=== PATIENT | female | born 1970 | race Hispanic/Latino ===

== ENCOUNTER 2019-01-19 07:15 | Day surgery (SDC) | payer BC ==
[~2019-01-19] VITALS: Ht 154.9 cm; Wt 64.9 kg
--- NOTE | ~2019-01-19 | OR ---
[facility] [address] [place], [place] [address] Draft DATE OF OPERATION: 01/19/2019 SURGEON: Kathy Gupta MD PREOPERATIVE DIAGNOSES: Menometrorrhagia and endometrial polyp. POSTOPERATIVE DIAGNOSES: Menometrorrhagia and endometrial polyp. PROCEDURES PERFORMED: Hysteroscopy, resection of polyps. ANESTHESIA: MAC. ESTIMATED BLOOD LOSS: Minimal. DRAINS: None. INDICATIONS AND FINDINGS: The patient is a 48-year-old female, 3, para 3, status post prior BTL, who has been having recent abnormal bleeding. She has a history of endometrial polyps and hysterosonogram in the office revealed probable recurrent polyps. At the time of surgery, exam under anesthesia revealed a normal-size uterus. At the time of hysteroscopy, the uterus sounded to 8 cm. There was a small polyp in the lower fundus as well as a good size polyp in the posterior uterine fundus. DESCRIPTION OF PROCEDURE: The patient was prepped and draped in the dorsal lithotomy position. A weighted speculum was placed and the anterior lip of the cervix was visualized and grasped with a single-tooth tenaculum. The cavity sounded to 8 cm. The endocervical canal was then dilated to a #7 dilator. At this point, the MyoSure device was placed and the cavity evaluated. Polyps were identified. The MyoSure Lite was then used. The polyp at the posterior uterine fundus was removed as much as possible. It was little bit difficult given the location of the polyp. The low fundal polyp was also removed easily. Following this, the procedure was terminated. There was no evidence of ongoing bleeding after removal of PATIENT NAME: CHELO CURRY OPERATIVE REPORT DATE OF : 74 REPORT #: [id number] PHYSICIAN: KATHY GUPTA MD PCP: MILIND CANTRELL MD REPORT IS CONFIDENTIAL AND NOT TO BE RELEASED WITHOUT AUTHORIZATION [facility] [address] [facility] [place], [place] [address] Draft the tenaculum. The instruments removed and the patient was taken to the recovery room in good condition. Kathy Gupta MD PJW/MODL /[id number] Copies: ~ PATIENT NAME: CHELO CURRY OPERATIVE REPORT DATE OF : 74 REPORT #: [id number] PHYSICIAN: KATHY GUPTA MD PCP: MILIND CANTRELL MD REPORT IS CONFIDENTIAL AND NOT TO BE RELEASED WITHOUT AUTHORIZATION
[~2019-01-19 07:15] MED LIST: AMITRIPTYLINE H25 MG PO; MELOXICAM15 MG PO; MOTRIN IB200 MG PO; NORCO 5-325 TA1 EACH PO; NORCO 7.5-3251 EACH PO; OMEPRAZOLE20 MG PO; ULTRAM50 MG PO; VENTOLIN HFA18 GM INH
--- NOTE | 2019-01-19 10:19 | NUR ---
PT IS ALERT, ORIENTED AND SUPPORTED BY HER ALEXANDER. BOTH SEEM COMFORTABLE WITH FEW QUESTIONS. PT DID REQUEST PRAYER, WILL FOLLOW NEEDED
--- NOTE | 2019-01-19 11:00 | NUR ---
01/19/19 1100 Sheets,Sari 1052 PT ARRIVED TO PACU ON 6L VIA MASK, PT COUGHING OFF AND ON. RESP EVEN AND UNLABORED. PT DENIES PAIN AND NAUSEA. PT REORIENTED TO PACU. 1055 O2 MASK REMOVED, PT COUGHING AND ABLE TO COUGH UP SPUTUM IN TISSUE. PT ASLEEP OFF AND ON.
--- NOTE | 2019-01-21 17:22 | PATH ---
[facility] [address] [place], [place] [address] Signed SPECIMEN(S): A ENDOMETRIAL POLYP SPECIMEN SOURCE: A. ENDOMETRIAL POLYP CLINICAL HISTORY: Menometrorrhagia, endometrial polyp. FINAL PATHOLOGIC DIAGNOSIS: Uterus, endometrium, curettage: - Multiple fragments of smooth muscle (see comment). - Small fragments of secretory endometrium, negative for hyperplasia, atypia, and malignancy. COMMENT: The fragments of smooth muscle may represent a portion of leiomyoma. Correlation with at operation is suggested. LJA:cml:C2NR MICROSCOPIC EXAMINATION: Histologic sections of all submitted blocks are examined by light microscopy. These findings, together with the gross examination, support the pathologic diagnosis. GROSS DESCRIPTION: The specimen is received in a formalin-filled specimen container labeled "ML, A". An aggregate of pale graves-ford soft tissue fragments admixed with hemorrhagic material is 2.0 x 2.0 x 0.5 cm and entirely submitted in cassette (A1). GW (under the direct supervision of a pathologist) The Gross Description was prepared using a voice recognition system. The report was reviewed for accuracy; however, sound-alike word errors, addition and/or deletions may occur. If there is any question about this report, please contact Client Services. PERFORMING LABORATORY: The technical component was performed by [facility], [address] [place] [id number] (Customer Success Representative: Promise Gordon MD; CLIA# [id number]). [facility], [address] [address] (Customer Success Representative: Rommel Maher MD; CLIA# PATIENT NAME: CHELO CURRY PATHOLOGY DATE OF : 74 REPORT #: [id number] PHYSICIAN: KATHLEEN PATHOLOGY PCP: MILIND CANTRELL MD REPORT IS CONFIDENTIAL AND NOT TO BE RELEASED WITHOUT AUTHORIZATION [facility] [address] [place] [address] Signed [id number]). Diagnostician: Rommel Maher MD Pathologist Electronically Signed 01/21/2019 Copies: ~ PATIENT NAME: CHELO CURRY PATHOLOGY DATE OF : 74 REPORT #: [id number] PHYSICIAN: KATHLEEN PATHOLOGY PCP: MILIND CANTRELL MD REPORT IS CONFIDENTIAL AND NOT TO BE RELEASED WITHOUT AUTHORIZATION
== END 2019-01-19 11:44 | disposition home or self-care (01) ==
LOC: DS 07:15 → OPS 07:15
PROVIDERS: Obstetrics & Gynecology
PROC: 0UB98ZZ Excision of Uterus, Via Natural or Artificial Opening Endoscopic (ICD-10-PCS; principal; 2019-01-19 09:30)
DX: N84.0 Polyp of corpus uteri (principal); E66.9 Obesity, unspecified; K21.9 Gastro-esophageal reflux disease without esophagitis; Z68.26 Body mass index [BMI] 26.0-26.9, adult; Z79.899 Other long term (current) drug therapy
CPT/HCPCS: 00952; J0131; J1100; J1885; J2250; J2405; J2704; J2765; J3475; J7121

== ENCOUNTER 2021-01-16 06:20 | Day surgery (SDC) | payer BC ==
[~2021-01-16] VITALS: Ht 154.9 cm; Wt 75.5 kg
[~2021-01-16 06:20] MED LIST changes: +MOBIC15 MG PO; +XYZAL5 MG PO
--- NOTE | 2021-01-17 18:55 | OR ---
[facility] [address] [place], [place] [address] Signed DATE OF OPERATION: 01/16/2021 SURGEON: Kathy Gupta MD PREOPERATIVE DIAGNOSIS: Perimenopausal bleeding, endometrial polyp. POSTOPERATIVE DIAGNOSIS: Perimenopausal bleeding, endometrial polyp, pending pathology. PROCEDURE: Hysteroscopy, resection of polyp. ANESTHESIA: MAC. ESTIMATED BLOOD LOSS: Minimal. DRAINS: None. INDICATIONS AND FINDINGS: The patient is a 50-year-old female, who has been having recurrent abnormal bleeding. She is perimenopausal. Ultrasound showed a probable endometrial polyp. EMB was not possible. At the time of surgery, exam under anesthesia revealed a normal-size uterus. The cavity sounded to 7 cm. The cavity appeared pretty atrophic other than an endometrial polyp over the anterior fundal area. DESCRIPTION OF PROCEDURE: The patient was prepped and draped in the dorsal lithotomy position. A weighted speculum was placed. The anterior lip of the cervix was visualized and grasped with a single-tooth tenaculum. The cavity was then sounded to 7 cm. The endocervical canal was then dilated with some difficulty to a #8 dilator. Following this, the MyoSure device was placed. The cavity was evaluated and the decision made to proceed with resection of the polyp. The MyoSure Lite was used and the polyp on the anterior fundus was removed without difficulty. Following this, the remaining cavity appeared completely benign. The procedure was terminated with removal of the instruments. There was no bleeding from the cervix. Following removal of the tenaculum and the inserts removed and the patient Electronically Signed By: KATHY GUPTA MD 01/17/21 3905 PATIENT NAME: CHELO CURRY OPERATIVE REPORT DATE OF : 74 REPORT #: [id number] PHYSICIAN: KATHY GUPTA MD PCP: MILIND KLINE MD REPORT IS CONFIDENTIAL AND NOT TO BE RELEASED WITHOUT AUTHORIZATION [facility] [address] [facility] [place], [place] [address] Signed was taken to recovery in good condition. All sponge and needle counts were correct. Kathy Gupta MD PJW/MODL /[id number] cc: Dr. Kline Copies: ~ Electronically Signed By: KATHY GUPTA MD 01/17/21 1855 PATIENT NAME: CHELO CURRY OPERATIVE REPORT DATE OF : 74 REPORT #: [id number] PHYSICIAN: KATHY GUPTA MD PCP: MILIND KLINE MD REPORT IS CONFIDENTIAL AND NOT TO BE RELEASED WITHOUT AUTHORIZATION
== END 2021-01-16 09:35 | disposition home or self-care (01) ==
LOC: DS 06:20
PROVIDERS: ATTEND Obstetrics & Gynecology
PROC: 0UB98ZZ Excision of Uterus, Via Natural or Artificial Opening Endoscopic (ICD-10-PCS; principal; 2021-01-16 08:15)
DX: N92.4 Excessive bleeding in the premenopausal period (principal); N84.0 Polyp of corpus uteri; F17.210 Nicotine dependence, cigarettes, uncomplicated
CPT/HCPCS: 00952; J0131; J1100; J1885; J2001; J2250; J2405; J2704; J2765; J7121

== ENCOUNTER 2023-01-30 05:43 | Emergency (ER) | payer BC ==
[~2023-01-30 05:43] MED LIST changes: +HYDROCHLOROTH12.5 MG PO
[2023-01-30 06:00] LABS: EOSINOPHILS 1.4 % (0-6); HEMATOCRIT 39.3 % (35.0-50.0); HEMOGLOBIN 13.6 g/dL (12.0-18.0); LYMPHOCYTES 37.1 % (24-44); MCH 30.6 (27-36); MCHC 34.6 g/dl (30-36); MCV 88.4 fl (81-99); MONOCYTES 10.1 % (0-12); NEUTROPHILS 50.4 % (39-80); PLATELET COUNT 302 K/uL (140-440); RBC 4.45 M/ul (4.3-5.7); RDW 12.8 (10.5-15.0)
[2023-01-30 06:17] LABS: ALBUMIN/GLOBULIN RATIO 1.11 (1.1-2.4); ALKALINE PHOSPHATASE 92 U/L (46-116); ALT (SGPT) 20 U/L (14-59); AST (SGOT) 19 U/L (15-37); BILIRUBIN, TOTAL 0.8 ng/dL (0.2-1.0); CALCIUM 9.2 mg/dL (8.5-10.1); CARBON DIOXIDE 28 mmol/L (21-32); CHLORIDE 100 mmol/L (98-107); GLOMERULAR FILTRATION RATE,EST 69 mL/min (>60); MAGNESIUM 1.9 mg/dL (1.8-2.4); PROTEIN, TOTAL 7.6 g/dL (6.4-8.2); UREA NITROGEN 12 mg/dL (7-18)
[2023-01-30] MEDS ORDERED: CYCLOBENZAPRINE10 MG PO (08:23)
[2023-01-30] MEDS ORDERED: PEPCID20 MG PO (08:23)
[2023-01-30 08:39] VITALS: BP 111/74
--- NOTE | 2023-01-31 06:10 | EKG ---
[facility] [address] [facility] [place] [address] Signed Unusual P axis and short MS, probable junctional rhythm Abnormal ECG No previous ECGs available Confirmed by MARJORIE PETERSON MD ([id number]) on 01/31/2023 6:10:30 AM Electronically Signed By: MARJORIE PETERSON 01/31/23 0610 PATIENT NAME: CHELO CURRY Electrocardiogram DATE OF : 74 PHYSICIAN: MARJORIE PETERSON REPORT #: [id number] REPORT IS CONFIDENTIAL AND NOT TO BE RELEASED WITHOUT AUTHORIZATION
--- NOTE | 2023-01-31 06:11 | EKG ---
[facility] [address] [facility] [place] [address] Signed Normal sinus rhythm Normal ECG When compared with ECG of 30-JAN-2023 05:49, (Unconfirmed) Sinus rhythm has replaced Junctional rhythm Confirmed by MARJORIE PETERSON MD ([id number]) on 01/31/2023 6:10:46 AM Electronically Signed By: MARJORIE PETERSON 01/31/2311 PATIENT NAME: PATRICIOCHELO ISIDRA Electrocardiogram DATE OF : 74 PHYSICIAN: MARJORIE PETERSON REPORT #: [id number] REPORT IS CONFIDENTIAL AND NOT TO BE RELEASED WITHOUT AUTHORIZATION
== END 2023-01-30 08:40 | disposition home or self-care (01) ==
LOC: ED 05:43
PROVIDERS: Internal Medicine
DX: R07.2 Precordial pain (principal); K21.9 Gastro-esophageal reflux disease without esophagitis; E87.6 Hypokalemia; F17.200 Nicotine dependence, unspecified, uncomplicated; Z79.899 Other long term (current) drug therapy
CPT/HCPCS: 36415; 71045; 80053; 83735; 84484; 85025; 93005; 93010; 96374; 99285-25; A9270

== ENCOUNTER 2024-09-04 13:53 | Emergency (ER) | payer OTHER ==
[~2024-09-04] VITALS: Ht 154.9 cm; Wt 74.0 kg
[~2024-09-04 13:53] MED LIST changes: +CYCLOBENZAPRINE10 MG PO; +PEPCID20 MG PO
[2024-09-04] MEDS ORDERED: PREDNISONE20 MG PO (19:41)
[2024-09-04] MEDS ORDERED: predniSONE 20 MG TAB PO ONE (19:45)
[2024-09-04 20:02] VITALS: BP 146/92
== END 2024-09-04 20:02 | disposition home or self-care (01) ==
LOC: ED 13:53
DX: M77.11 Lateral epicondylitis, right elbow (principal); I10 Essential (primary) hypertension; F17.200 Nicotine dependence, unspecified, uncomplicated; Z79.899 Other long term (current) drug therapy
CPT/HCPCS: 73080; 99284; J7512